=== PATIENT | female | born 1970 | race Caucasian/White ===

== ENCOUNTER 2017-06-25 09:35 | Day surgery (SDC) | payer BC ==
[~2017-06-25] VITALS: Ht 170.2 cm; Wt 63.5 kg
[~2017-06-25 09:35] MED LIST: CLONAZEP ODT1 MG PO; CLONAZEPAM0.5 M1 PO; LAMICTAL200 M1 PO; LITHIUM CARB300 MG PO; QUETIAPINE FUM100 MG PO; QUETIAPINE FUMA25 MG PO; TIROSINT PO
[2017-06-25] MEDS ORDERED: NEURONTIN300 MG PO (11:47)
[2017-06-25] MEDS ORDERED: PERCOCET 5/325M1 TAB PO (11:48)
[2017-06-25] MEDS ORDERED: IBUPROFEN600 MG PO (11:49)
[2017-06-25 12:05] VITALS: BP 109/67
== END 2017-06-25 14:20 | disposition home or self-care (01) | DRG 349 ==
LOC: ENDO 09:35 → ORM 10:00 → ENDO 14:20
PROVIDERS: ATTEND Surgery
PROC: 06BY3ZC Excision of Hemorrhoidal Plexus, Percutaneous Approach (ICD-10-PCS; principal; 2017-06-25)
DX: K64.4 Residual hemorrhoidal skin tags (principal); E03.9 Hypothyroidism, unspecified; E78.5 Hyperlipidemia, unspecified; F31.9 Bipolar disorder, unspecified; Z87.891 Personal history of nicotine dependence
CPT/HCPCS: C9290